=== PATIENT | female | born 1985 | race Caucasian/White ===

== ENCOUNTER 2021-01-18 13:14 | Emergency (ER) | payer OTHER, SELFPAY ==
[2021-01-18 13:20] VITALS: BP 127/80; PULSE 93; RESP 18; TEMP 36.6; O2SAT 100
--- NOTE | 2021-01-18 14:15 | ED.GENADULT ---
HPI - General Adult General Chief complaint: Unspecified Stated complaint: Patient is requesting ultrasound due to pregancy Time Seen by Provider: 01/18/21 13:30 Source: patient Mode of arrival: ambulatory Limitations: no limitations History of Present Illness HPI narrative: Patient is a 35 year old female who presents requesting ultrasound for . Patient reports being seen by Dr. Carlos Elias's office yesterday and had ultrasound which showed she was 6 weeks 2 days gestation per patient. Patient denies pelvic pain, discharge or cramping. She reports that she is not having any symptoms like nausea, smell aversion etc and wants ultrasound to check on baby at this time. Patient denies all physical complaints. MD complaint: Requesting ultrasound Related Data Home Medications Medication Instructions Recorded Confirmed levonorgestrel 20.1 mcg/24 hrs (6 1 device I-UTERINE ONCE 05/10/20 yrs) 52 mg intrauterine device Allergies Allergy/AdvReac Type Severity Reaction Status Date / Time No Known Allergies Allergy Unknown Verified 02/15/20 09:09 Review of Systems Review of Systems: Narrative: CONSTITUTIONAL: Denies fever, chills, or sweats. EYES: Denies visual changes, redness, or discharge. ENT: Denies rhinorrhea, congestion, sore throat, or otalgia. CARDIOVASCULAR: Denies chest pain, palpitations, or edema. RESPIRATORY: Denies cough or dyspnea. GASTROINTESTINAL: Denies abdominal pain, nausea, vomiting, or diarrhea. GENITOURINARY: Denies dysuria or hematuria. SKIN: Denies rash or itching. MUSCULOSKELETAL: Denies back pain, joint pain, or myalgia. NEUROLOGIC: Denies headache, numbness, dizziness, or weakness. PSYCHIATRIC: Denies anxiety or depression. PMFSH Family History Family History Mother Hypertension Family history of cardiovascular disease Family history of cardiomyopathy Sibling Family history of malignant melanoma Other Asthma Family history of allergic disorder Social History Social History Smoking status: Never smoker Alcohol intake: current Gender identity (if verbalized by the patient): Female Exam Narrative: Exam Narrative: GENERAL: Well-appearing, well-nourished, and in no acute distress. HEAD: Normocephalic, atraumatic. EYES: EOMI. No redness or drainage. Conjunctiva are normal. ENT: Mucous membranes pink and moist. CHEST: No respiratory distress. Clear to auscultation. HEART: Regular rate and rhythm. No murmur appreciated. Normal peripheral pulses. GI: Soft, nontender without rebound, or guarding. MUSCULOSKELETAL: No bony tenderness. EXTREMITIES: Normal range of motion. No edema. SKIN: Warm, dry, no rash. NEURO: No focal deficits. Alert and oriented x3. Gait steady. PSYCH: Normal affect. No signs of depression or anxiety. Course Vital Signs Vital signs: Vital Signs Temperature 36.6 C 01/18/21 13:20 Pulse Rate 93 01/18/21 13:20 Respiratory Rate 18 01/18/21 13:20 Blood Pressure 127/80 01/18/21 13:20 Pulse Oximetry 100 01/18/21 13:20 Temperature 36.6 C 01/18/21 13:20 Pulse Rate 93 01/18/21 13:20 Respiratory Rate 18 01/18/21 13:20 Blood Pressure 127/80 01/18/21 13:20 Pulse Oximetry 100 01/18/21 13:20 Reviewed-patient is informed that they may have pre-hypertension or hypertension based on a blood pressure reading. I recommend the patient call the primary care provider listed on their discharge instructions or a physician of their choice this week to arrange follow-up for further evaluation of possible pre-hypertension or hypertension. Medical Decision Making MDM Narrative Medical decision making narrative: heart tones in the 180's obtained by L & D RN. Discussed with Dr. Carlos Elias who requests no further interventions for patient. Patient instructed to follow up with Dr. Carlos Elias as scheduled. Patient is
[2021-01-18 14:36] VITALS: BP 138/78; PULSE 78; RESP 20; O2SAT 99
== END 2021-01-18 14:38 | disposition home or self-care (01) ==
PROVIDERS: Emergency Provider Nurse Practitioner; PCP Family Medicine
DX: Z34.91 Encounter for supervision of normal pregnancy, unspecified, first trimester (principal); R03.0 Elevated blood-pressure reading, without diagnosis of hypertension
CPT/HCPCS: 99282

== ENCOUNTER 2021-01-28 17:07 | Emergency (ER) | payer OTHER, SELFPAY ==
[2021-01-28 17:50] VITALS: BP 124/79; PULSE 84; RESP 18; TEMP 37.2; O2SAT 99
[2021-01-28 18:29] LABS: Basophils Percent Auto 0.2 % (0.2-1.2); Eosinophils Absolute Auto 0.2 K/mm3 (0-0.3); Eosinophils Percent Auto 1.7 % (0-4.4); Hemoglobin 12.1 g/dL (12.0-15.0); Immature Granulocyte Absolute 0.01 K/mm3 (0.00-0.031); Immature Granulocyte Percent A 0.1 % (0-0.5); Lymphocytes Absolute Auto 1.79 K/mm3 (0.9-3.2); Lymphocytes Percent Auto 19.7 % (18.3-44.2); Mean Corpuscular HGB Conc 34.6 g/dl (32-36); Mean Corpuscular Hemoglobin 30.6 pg (26-34); Mean Corpuscular Volume 88.6 fl (80-100); Mean Platelet Volume 8.7 fl (7.4-10.4); Monocytes Absolute Auto 0.6 K/mm3 (0.1-0.6); Monocytes Percent Auto 6.1 % (2.6-8.5); Neutrophils Absolute Auto 6.6 K/mm3 (1.3-6.7); Neutrophils Percent Auto 72.2 % (45.5-73.1); Platelet Count Result 341 k/mm3 (150-375); Red Blood Count 3.95 M/mm3 (4.2-5.4); Red Cell Distribution Width 12.7 % (11.5-14.5); White Blood Count 9.1 K/mm3 (4.5-10.0)
[2021-01-28 19:37] LABS: Beta HCG Quantitative > 300000.00 mIU/ML
[2021-01-28] MEDS: SODIUM CHLORIDE 0.9% IV 1,000 ML 999 ML IV CONT (21:47)
[2021-01-28 21:52] VITALS: BP 131/72; PULSE 103
[2021-01-28 21:53] VITALS: BP 124/77; PULSE 95
[2021-01-28 21:55] VITALS: BP 121/77; PULSE 98
--- NOTE | 2021-01-28 22:51 | ED.FEMALEGU ---
HPI - Female Genitourinary General Chief complaint: Vaginal Bleeding Stated complaint: VB PREG Time Seen by Provider: 01/28/21 21:25 History of Present Illness HPI Narrative: Patient is a 35-year-old female who presents ER with vaginal bleeding. Started suddenly just prior to arrival here. A large amount of blood come out of her vagina. She is [address] Carlos Elias. She denies any vaginal cramping. No persistent bleeding. Had some spotting previously and was diagnosed with threatened . She has had 2 ultrasounds have confirmed IUP. Related Data Home Medications Medication Instructions Recorded Confirmed levonorgestrel 20.1 mcg/24 hrs (6 1 device I-UTERINE ONCE 05/10/20 yrs) 52 mg intrauterine device Allergies Allergy/AdvReac Type Severity Reaction Status Date / Time No Known Allergies Allergy Unknown Verified 02/15/20 09:09 Review of Systems Review of Systems: All systems reviewed & are unremarkable except as noted in HPI and below Gastrointestinal: Gastrointestinal: Denies abdominal pain, Denies nausea and Denies vomiting Genitourinary: Genitourinary: Reports abnormal vaginal bleeding, Denies nocturia, Denies dysuria and Denies vaginal discharge PMFSH Past Medical History Medical History (Updated 01/28/21 @ 22:57 by Manuel Son MD) Generalized anxiety disorder Obsessive-compulsive disorder, unspecified Surgical History Surgical History (Updated 01/28/21 @ 22:53 by Manuel Son MD) No pertinent past surgical history Family History Family History Mother Hypertension Family history of cardiovascular disease Family history of cardiomyopathy Sibling Family history of malignant melanoma Other Asthma Family history of allergic disorder Social History Social History Smoking status: Never smoker Alcohol intake: current Gender identity (if verbalized by the patient): Female Exam Narrative: Exam Narrative: GENERAL: Well-appearing, well-nourished, and in no acute distress. HEAD: Normocephalic, atraumatic. CHEST: Clear to auscultation. No respiratory distress. HEART: Regular rate and rhythm. Normal peripheral pulses. ABDOMEN: Soft, nontender, nondistended. : Normal external genitalia. Small amount of dark blood within the vagina with mucus-like substance coming from the cervical os. No additional discharge. EXTREMITIES: Normal range of motion. No edema. NEURO: Alert and oriented x3. PSYCH: Normal mood and affect. Course Course Emergency Course: Unable to identify intrauterine on bedside ultrasound. Concern patient is actively miscarrying. Discussed with patient's obstetrics office. Did like her to come in tomorrow as previously scheduled for an ultrasound. Patient verbalized understanding of treatment plan. Discharge home. Vital Signs Vital signs: Vital Signs Temperature 98.9 F 01/28/21 17:50 Pulse Rate 84 01/28/21 17:50 Respiratory Rate 18 01/28/21 17:50 Blood Pressure 124/79 01/28/21 17:50 Pulse Oximetry 99 01/28/21 17:50 Temperature 98.9 F 01/28/21 17:50 Pulse Rate 98 01/28/21 21:55 Respiratory Rate 18 01/28/21 17:50 Blood Pressure 121/77 01/28/21 21:55 Pulse Oximetry 99 01/28/21 17:50 MDM - Female Genitourinary Lab Data Result diagrams: 01/28/21 17:57 Labs: Lab Results 01/28/21 01/28/21 01/28/21 Range/Units 17:57 17:57 17:57 WBC 9.1 (4.5-10.0) K/mm3 RBC 3.95 L (4.2-5.4) M/mm3 Hgb 12.1 (12.0-15.0) g/dL Hct 35.0 L (37.0-47.0) % MCV 88.6 (80-100) fl MCH 30.6 (26-34) pg MCHC 34.6 (32-36) g/dl RDW 12.7 (11.5-14.5) % Plt Count 341 (150-375) k/mm3 MPV 8.7 (7.4-10.4) fl Immature Gran % (Auto) 0.1 (0-0.5) % Neut % (Auto) 72.2 (45.5-73.1) % Lymph % (Auto) 19.7 (18.3-44.2) % [place] % (Auto) 6.1 (
[2021-01-28 23:19] VITALS: BP 115/74; PULSE 90; RESP 18; O2SAT 100
== END 2021-01-28 23:19 | disposition home or self-care (01) ==
PROVIDERS: Emergency Medicine; Emergency Provider Emergency Medicine; PCP Family Medicine
DX: O20.0 Threatened abortion (principal); Z3A.08 8 weeks gestation of pregnancy
CPT/HCPCS: 36415; 84702; 85025; 85461; 96360; 99284; J7030

== ENCOUNTER 2021-09-02 10:50 | Inpatient (IN) | payer OTHER, SELFPAY ==
[2021-09-02] VITALS (70 sets, daily range): BP systolic 104–156; BP diastolic 59–103; PULSE 61–110; RESP 16–18; TEMP 36.6–37.1; O2SAT 95–100
[2021-09-02 12:16] LABS: Basophils Percent Auto 0.1 % (0.2-1.2); Eosinophils Percent Auto 0.6 % (0-4.4); Hematocrit 35.1 % (37.0-47.0); Hemoglobin 11.8 g/dL (12.0-15.0); Immature Granulocyte Absolute 0.04 K/mm3 (0.00-0.031); Immature Granulocyte Percent A 0.6 % (0-0.5); Lymphocytes Absolute Auto 1.13 K/mm3 (0.9-3.2); Lymphocytes Percent Auto 15.9 % (18.3-44.2); Mean Corpuscular HGB Conc 33.6 g/dl (32-36); Mean Corpuscular Volume 89.3 fl (80-100); Mean Platelet Volume 9.1 fl (7.4-10.4); Monocytes Absolute Auto 0.4 K/mm3 (0.1-0.6); Monocytes Percent Auto 5.6 % (2.6-8.5); Neutrophils Absolute Auto 5.5 K/mm3 (1.3-6.7); Neutrophils Percent Auto 77.2 % (45.5-73.1); Platelet Count Result 217 k/mm3 (150-375); Red Blood Count 3.93 M/mm3 (4.2-5.4); Red Cell Distribution Width 13.7 % (11.5-14.5); White Blood Count 7.1 K/mm3 (4.5-10.0)
--- NOTE | 2021-09-02 12:48 | WPDANESEPPF ---
Anes - Initial Pre Proc Eval Date/Time: 09/02/21 12:48 Surgeon: Theron Butler MD Pre Op Diagnosis: r/o ROM Patient Data Age: 36 Gender: F Height: 1.63 m Weight: 79.5 kg Last Vital Signs Pulse 107 H 09/02/21 12:30 BP 126/86 09/02/21 12:30 Allergies Allergy/AdvReac Type Severity Reaction Status Date / Time No Known Allergies Allergy Unknown Verified 07/01/21 15:27 Home Medications Medication Instructions Recorded Confirmed Type No Home Medications 07/01/21 07/01/21 History Laboratory Tests 09/02/21 09/02/21 12:08 12:08 WBC 7.1 K/mm3 K/mm3 (4.5-10.0) RBC 3.93 M/mm3 L M/mm3 (4.2-5.4) Hgb 11.8 g/dL L g/dL (12.0-15.0) Hct 35.1 % L % (37.0-47.0) MCV 89.3 fl fl (80-100) MCH 30.0 pg pg (26-34) MCHC 33.6 g/dl g/dl (32-36) RDW 13.7 % % (11.5-14.5) Plt Count 217 k/mm3 k/mm3 (150-375) MPV 9.1 fl fl (7.4-10.4) Immature Gran % (Auto) 0.6 % H % (0-0.5) Neut % (Auto) 77.2 % H % (45.5-73.1) Lymph % (Auto) 15.9 % L % (18.3-44.2) [place] % (Auto) 5.6 % % (2.6-8.5) Eos % (Auto) 0.6 % % (0-4.4) Baso % (Auto) 0.1 % L % (0.2-1.2) Lymph # (Auto) 1.13 K/mm3 K/mm3 (0.9-3.2) [place] # (Auto) 0.4 K/mm3 K/mm3 (0.1-0.6) Eos # (Auto) 0.0 K/mm3 K/mm3 (0-0.3) Baso # (Auto) 0.0 K/mm3 K/mm3 (0.0-0.1) Abs Immat Gran (auto) 0.04 K/mm3 H K/mm3 (0.00-0.031) Absolute Neuts (auto) 5.5 K/mm3 K/mm3 (1.3-6.7) Absolute Nucleated RBC 0.0 K/mm3 K/mm3 (0.0-0.012) Nucleated RBC % 0.0 % % (0.0-0.2) RPR Pending Patient hx anesthesia problems: none Family hx anesthesia problems: none Results Review: All pre-operative results and documents have been reviewed as part of the pre-operative evaluation. [facility] Past Medical History Medical History Generalized anxiety disorder Obsessive-compulsive disorder, unspecified Surgical History Surgical History No pertinent past surgical history Family History Family History Mother Hypertension Family history of cardiovascular disease Family history of cardiomyopathy Sibling Family history of malignant melanoma Other Asthma Family history of allergic disorder Social History Social History Alcohol intake: current Gender identity (if verbalized by the patient): Female Anes - Eval Final PreProcedure Day of Procedure 09/02/21 12:48 Patient weight: overweight Heart: regular rate and rhythm Lungs: clear to auscultation Airway: Mallampati scale class II Neurological: alert and oriented Last oral intake: >/= 8 hours ASA classification: II Emergent: yes Anesthetic plan: proceed Anesthesia type and monitoring: regional spinal and standard monitoring Results Review: All pre-operative results and documents have been reviewed as part of the pre-operative evaluation. Informed Consent: The patient's anesthetic plan and its attendant risks and benefits were discussed with the patient/family/POA. Questions were solicited and answers provided to the satisfaction of the patient/family/POA.
--- NOTE | 2021-09-02 13:01 | PM.IMHP ---
H&P: HPI History of Present Illness Date/Time: 09/02/21 13:01 Chief Complaint: intrauterine at term SROM prior x2 Narrative: 36 yo at 39w0d who presents with SROM. pt states she had a large gush of fluid earlier today. Her has been uncomplicated thus far. Pt has history of 2 prior c-sections. Review of Systems Cardiovascular: Cardiovascular: Denies chest pain, Denies leg edema, Denies palpitations, Denies dyspnea and Denies dyspnea on exertion Respiratory: Respiratory: Denies cough, Denies dyspnea and Denies dyspnea on exertion Gastrointestinal: Gastrointestinal: Denies abdominal pain, Denies constipation, Denies diarrhea, Denies nausea and Denies vomiting Genitourinary: Genitourinary: Denies hematuria, Denies urinary frequency, Denies dysuria, Denies pelvic pain, Denies urinary incontinence and Denies vaginal discharge Neurologic: Reports system reviewed and no additional complaints, except as documented Psychiatric: Psychiatric: Reports no additional psychiatric complaints Endocrine: Endocrine: Denies palpitations PMFSH Past Medical History Medical History Generalized anxiety disorder Obsessive-compulsive disorder, unspecified Surgical History Surgical History No pertinent past surgical history Family History Family History Mother Hypertension Family history of cardiovascular disease Family history of cardiomyopathy Sibling Family history of malignant melanoma Other Asthma Family history of allergic disorder Social History Social History Alcohol intake: current Gender identity (if verbalized by the patient): Female Meds Home Medications and Allergies Home Medications Medication Instructions Recorded Confirmed Type No Home Medications 07/01/21 07/01/21 History Allergies Allergy/AdvReac Type Severity Reaction Status Date / Time No Known Allergies Allergy Unknown Verified 07/01/21 15:27 Vital Signs Vital Signs - 24 hr 09/02/21 11:13 09/02/21 11:15 09/02/21 11:30 Pulse Rate 94 100 103 H Blood Pressure 135/89 118/77 122/83 09/02/21 11:45 09/02/21 12:00 09/02/21 12:15 Pulse Rate 104 H 110 H 93 Blood Pressure 128/83 123/84 127/80 09/02/21 12:30 Pulse Rate 107 H Blood Pressure 126/86 Exam Const: General: no acute distress Eyes: EOM: EOMs intact bilaterally Neck: Neck: supple Thyroid: thyroid normal Chest: Breast/axilla inspection: normal inspection of the breasts Breast/axilla palpation: normal palpation of the breasts, normal palpation of the axillae and no axillary lymphadenopathy Resp: Effort & Inspection: normal respiratory effort Auscultation: clear to auscultation bilaterally Cardio: Rate: regular rate Rhythm: regular rhythm GI: Inspection: non-distended and other (Gravid) GI Palp: Yes Soft to palpation, No Tenderness to palpation present (GI) and No Guarding due to palpation present (GI) Auscultation: normal bowel sounds : Speculum Exam - Vagina: No vaginal bleeding OB/external & speculum: external exam normal; No vaginal bleeding Skin: General skin exam: normal color and no rashes or lesions noted Neuro: Cognition (Neuro): normal cognition Speech: normal speech Extrem: General: normal to inspection Psych: Mental Status: mental status grossly normal Affect: normal affect H&P: Results Labs Labs: Short CBC 09/02/21 Range/Units 12:08 WBC 7.1 (4.5-10.0) K/mm3 Hgb 11.8 L (12.0-15.0) g/dL Hct 35.1 L (37.0-47.0) % Plt Count 217 (150-375) k/mm3 Assessment and Plan Assessment and plan (1) Supervision of high risk , unspecified, third trimester: Code(s): O09.93 - Supervision of high risk , unspecified, third trimester
[2021-09-02] MEDS: LACTATED RINGERS 250 ML 999 ML IVPB (13:15)
[2021-09-02] MEDS: ceFAZolin 2 GM/D5W 50 ML 2 GM/50 ML BAG IVPB (13:41)
[2021-09-02] MEDS: KETOROLAC 30 MG/ML VIAL (*BKC) IV PUSH ×2 (14:04→22:07)
[2021-09-02] MEDS: LACTATED RINGERS 1,000 ML 125 ML IV CONT (14:45)
--- NOTE | 2021-09-02 15:03 | LDADM ---
This patient, Emma Higuera, was admitted to Labor/Delivery/Recovery 120 on 09/02/21 at 10:50. Plans for labor, pain management and were discussed with patient. Patient/family oriented to hospital policies and general routines including ID bracelet, bed and alarms, visiting hours, pain management, procedures, bathroom and other care routines, personal items, smoking policy, room service/diet and guest tray routines, infant security routines, and visiting hours. Patient/Family are encouraged to report perceived risks to care and to ask questions if they do not understand what they are told or what they should do. See OBIX for further documentation.
--- NOTE | 2021-09-02 15:19 | W.PM.PROC2 ---
Procedure Note - Detailed Date of Procedure 09/02/21 Pre-op Diagnosis r/o ROM Post-op Diagnosis same Procedure Performed repeat low transverse section Surgeon Audie Jimenez MD Anesthesia spinal and epidural Description of Procedure The patient was taken to the operating room. A combined spinal epidural anesthesic was administered and found to be adequate at a t-10 level. The patient was placed in a supine position with a slight left lateral tilt. A armijo catheter was placed with return of clear urine. A Bovie grounding pad was placed. Surgical prep was performed and surgical drapes were placed. A surgical time out was performed. A Pfannenstiel skin incision was then made with the scalpel and carried through to the underlying layer of fascia. The fascia was then incised in the midline and the incision was extended laterally with the Huizar scissors. The superior aspect of the fascia was then grasped with the Terrie clamps, elevated, and the underlying rectus muscles dissected off bluntly and sharply. Attention was then turned to the inferior aspect of this incision which, in a similar fashion, was grasped, tented up with the Terrie clamps, and the rectus muscles dissected off both bluntly and sharply. The rectus muscles were then in the midline. The peritoneum was identified and entered bluntly. The peritoneal incision was then extended superiorly and inferiorly with good visualization of the bladder. The vesico-uterine serosa was identified and dissected to create a bladder flap. The bladder blade was reinserted. The uterus was inspected for rotation. A low-transverse uterine incision was made sharply with the scalpel and entry was made into the uterine cavity. An amniotomy was made and copious amounts of clear fluid were noted on return. The uterine incision was extended laterally bluntly. The bladder blade was removed. The fetus was difficult to extract from the hysterotomy due to adhesions of the rectus muscle and the fascia. A kiwi vacuum was applied and was unsuccessful with one pop-off. Bandage scissor were then used to incise the right lateral rectus muscle and to extend the uterine incision. The fetus was then delivered atraumatically.. The nose and mouth were suctioned with a bulb syringe. The umbilical cord was clamped twice and cut. The was handed off to the waiting staff. At the time of the delivery, the had good color, tone and grimace. The cried with minimal stimulation. A second segment of umbilical cord was clamped and cut for cord blood gasses. Cord blood was collected for determination of the blood type and for direct Baires. The placenta was delivered spontaneously without difficulty. The placenta appeared grossly normal and complete. The uterus was exteriorized and cleared of all clots and debris. The uterine incision was repaired using 0-monocryl suture in a running fashion. A second layer of 0 Monocryl suture was used in an imbricating fashion to obtain excellent hemostasis and uterine strength. The uterine closure was inspected for hemostasis. The posterior aspect of the uterus and the broad ligaments were inspected and the posterior cul-de-sac cleared of fluid and blood clots. The uterine closure was again inspected and found to be hemostatic. The uterus was returned to the abdominal cavity. The pericolic gutters were inspected and were cleared of all blood clots and debris. The uterine closure was then re inspected to ensure hemostasis as were all subfascial tissues. The peritoneum was closed using 3-0 vicryl in a running fashion. The right rectus muscle was re-approximated with a single 0-vicryl mattress suture. The fascia was reapproximated with 0-vicryl in a running fashion. The subcutaneous tissue was irrigated and hemostasis achieved with electrocautery. It was reapproximated with 3-0 vicryl in a running fashion. The skin was closed with 4-0 vicryl in a subcuticular fashion. A sterile dres
[2021-09-02] MEDS: OXYTOCIN 30 UNITS/NS 500 ML 30 UNITS/500 ML BAG 125 UNITS IV CONT (17:31)
--- NOTE | 2021-09-02 17:41 | PC.NURSE ---
Patient transferred to post room #290 via stretcher. Support person present. Oriented to unit, room, information board, rooming in, admission packet and security measures. Patient verbalizes understanding.
[2021-09-02] MEDS: DOCUSATE SODIUM 100 MG CAPSULE PO (20:09)
[2021-09-02] MEDS: DEXTROSE 5%/0.45% SOD CHL 1,000 ML 125 ML IV CONT (23:15)
[2021-09-03 03:10] VITALS: BP 112/75; PULSE 74; RESP 16; TEMP 36.8; O2SAT 98
[2021-09-03 05:22] LABS: Basophils Percent Auto 0.4 % (0.2-1.2); Eosinophils Percent Auto 0.6 % (0-4.4); Hematocrit 29.1 % (37.0-47.0); Hemoglobin 9.5 g/dL (12.0-15.0); Immature Granulocyte Absolute 0.03 K/mm3 (0.00-0.031); Immature Granulocyte Percent A 0.4 % (0-0.5); Lymphocytes Absolute Auto 1.11 K/mm3 (0.9-3.2); Lymphocytes Percent Auto 15.9 % (18.3-44.2); Mean Corpuscular HGB Conc 32.6 g/dl (32-36); Mean Corpuscular Volume 91.8 fl (80-100); Mean Platelet Volume 9.8 fl (7.4-10.4); Monocytes Absolute Auto 0.5 K/mm3 (0.1-0.6); Monocytes Percent Auto 7.6 % (2.6-8.5); Neutrophils Absolute Auto 5.2 K/mm3 (1.3-6.7); Neutrophils Percent Auto 75.1 % (45.5-73.1); Platelet Count Result 175 k/mm3 (150-375); Red Blood Count 3.17 M/mm3 (4.2-5.4); Red Cell Distribution Width 13.8 % (11.5-14.5)
[2021-09-03 07:30] VITALS: BP 115/79; PULSE 85; RESP 16; TEMP 36.6; O2SAT 99
[2021-09-03] MEDS: DOCUSATE SODIUM 100 MG CAPSULE PO ×2 (07:55→16:49)
[2021-09-03] MEDS: POLYSACCHARIDE IRON COMPLEX 150 MG CAPSULE PO ×2 (07:55→16:49)
[2021-09-03] MEDS: MULTIVIT/MIN/PREN/FOL AC/IRON TABLET 1 TAB PO (07:55)
[2021-09-03] MEDS: IBUPROFEN 600 MG TABLET PO ×2 (07:55→16:49)
--- NOTE | 2021-09-03 09:33 | WPDANLDPN2 ---
Anes-Prog Note L&D Date/Time: 09/03/21 09:33 Comfortable throughout: section Neuraxial method: spinal Epidural/Spinal procedure site: clean & non-tender Neuro status: Neuro function grossly intact. Cardiovascular status: normal Respiratory status: normal Airway patency: baseline Mental status: baseline Post-Op hydration status: normal Vital Signs: Last Vital Signs Temp 36.6 C 09/03/21 07:30 Pulse 85 09/03/21 07:30 Resp 16 09/03/21 07:30 BP 115/79 09/03/21 07:30 Pulse Ox 99 09/03/21 07:30 Pain score (VAS): 09/09 I/O: Intake & Output 09/02/21 09/03/21 09/03/21 23:59 07:59 15:59 Intake Total 500 Output Total 300 1350 Balance 200 -1350 Post-procedural complaints: none Patient feedback: Patient satisfied with anesthetic care.
--- NOTE | 2021-09-03 09:34 | WPDANLDNPN2 ---
Anes-Prog Note L&D-Neuraxial Date/Time: 09/03/21 09:34 Neuraxial medications: intrathecal PF morphine Opiod-related complaints: none Patient feedback: Patient satisfied with post-operative pain management.
--- NOTE | 2021-09-03 11:22 | PM.OBPNVD ---
OB - PN: Subj Subjective Date/time seen: 09/03/21 11:22 Interval history: Patient doing well this AM. she is ambulating out of bed. She is tolerating PO. She reports adequate pain control. Her bleeding is normal and she reports normal lochia. She denies fever, chills, N/V. She has not yet passed flatus. Patient comments: no complaints and pain well controlled; no flatus present OB - PN: Obj Data Labs CBC & Chem 7: 09/03/21 03:17 Labs: Laboratory Results - last 24 hr 09/02/21 09/02/21 09/03/21 12:08 12:08 03:17 WBC 7.1 7.0 RBC 3.93 L 3.17 L Hgb 11.8 L 9.5 L Hct 35.1 L 29.1 L MCV 89.3 91.8 MCH 30.0 30.0 MCHC 33.6 32.6 RDW 13.7 13.8 Plt Count 217 175 MPV 9.1 9.8 Immature Gran % (Auto) 0.6 H 0.4 Neut % (Auto) 77.2 H 75.1 H Lymph % (Auto) 15.9 L 15.9 L [place] % (Auto) 5.6 7.6 Eos % (Auto) 0.6 0.6 Baso % (Auto) 0.1 L 0.4 Lymph # (Auto) 1.13 1.11 [place] # (Auto) 0.4 0.5 Eos # (Auto) 0.0 0.0 Baso # (Auto) 0.0 0.0 Abs Immat Gran (auto) 0.04 H 0.03 Absolute Neuts (auto) 5.5 5.2 Absolute Nucleated RBC 0.0 0.0 Nucleated RBC % 0.0 0.0 Blood Type O Positive Antibody Screen Negative OB - PN A/P Plan day: 1 Plan: routine care Comments: patient doing well this AM s/p armijo tolerating PO H/H , continue iron supplementation continue routine PP care Time Spent With Patient Time: Total time spent is greater than 50% in coordination of care (as documented) at patient's floor/unit and/or counseling patient: Time with patient: less than 15 minutes Review of Systems Constitutional: Constitutional: Reports no additional constitutional complaints Cardiovascular: Cardiovascular: Reports no additional cardiovascular complaints Respiratory: Respiratory: Reports no additional respiratory complaints Gastrointestinal: Gastrointestinal: Reports no additional gastrointestinal complaints Genitourinary: Genitourinary: Reports no additional female genitourinary complaints Exam Const: General: comfortable and no acute distress Resp: Effort & Inspection: normal respiratory effort Auscultation: clear to auscultation bilaterally Cardio: Rate: regular rate GI: GI Palp: Yes Soft to palpation and Yes Tenderness to palpation present (GI) (appropriately tender around incision ) Auscultation: normal bowel sounds Other: fundus firm and below umbilicus Incision C/D/I Urinary Catheter: Urinary Catheter: urine clear Psych: Appearance: grossly normal Mental Status: mental status grossly normal Affect: normal affect
[2021-09-03 11:38] VITALS: BP 116/80; PULSE 85; RESP 16; TEMP 36.3; O2SAT 99
[2021-09-03 14:57] LABS: Rapid Plasma Reagin Non-Reactive (NonReactive)
[2021-09-03 21:00] VITALS: BP 122/81; PULSE 93; RESP 16; TEMP 37; O2SAT 99
[2021-09-03] MEDS: FLUoxetine HCL 20 MG CAPSULE PO (21:04)
[2021-09-04] MEDS: IBUPROFEN 600 MG TABLET PO ×4 (04:04→23:46)
--- NOTE | 2021-09-04 06:59 | PM.OBPNVD ---
OB - PN: Subj Subjective Date/time seen: 09/04/21 06:59 Patient comments: no complaints and pain well controlled baby status: doing well and nursing well OB - PN: Obj Data Labs CBC & Chem 7: 09/03/21 03:17 Labs: Laboratory Results - last 24 hr 09/02/21 12:08 RPR Non-reactive OB - PN A/P Plan day: 2 Plan: routine care Time Spent With Patient Time: Total time spent is greater than 50% in coordination of care (as documented) at patient's floor/unit and/or counseling patient: Time with patient: less than 15 minutes Review of Systems Review of Systems: All systems reviewed & are unremarkable except as noted in HPI and below Exam Const: General: no acute distress Eyes: General: appearance normal, both eyes and all related structures Neck: Neck: supple and no JVD Thyroid: thyroid normal Resp: Effort & Inspection: normal respiratory effort Auscultation: clear to auscultation bilaterally Cardio: Rate: regular rate Rhythm: regular rhythm GI: Inspection: non-distended GI Palp: Yes Soft to palpation, No Tenderness to palpation present (GI) and No Guarding due to palpation present (GI) Auscultation: normal bowel sounds : General: Yes bladder normal to palpation External Female Exam: normal external appearance Speculum Exam - Vagina: normal vaginal discharge and No vaginal bleeding Speculum Exam - Cervix: nontender Bimanual exam- vagina & uterus: bladder normal to palpation and No Cervical tenderness present OB/external & speculum: No vaginal bleeding Skin: General skin exam: no rashes or lesions noted Extrem: General: normal to inspection and no edema Psych: Mental Status: mental status grossly normal Affect: normal affect
[2021-09-04 08:30] VITALS: BP 129/82; PULSE 86; RESP 16; TEMP 36.8; O2SAT 99
[2021-09-04 09:30] VITALS: BP 118/80; PULSE 78; RESP 18; TEMP 36.7
[2021-09-04] MEDS: MULTIVIT/MIN/PREN/FOL AC/IRON TABLET 1 TAB PO (10:11)
[2021-09-04] MEDS: POLYSACCHARIDE IRON COMPLEX 150 MG CAPSULE PO ×2 (10:12→17:20)
[2021-09-04] MEDS: DOCUSATE SODIUM 100 MG CAPSULE PO ×2 (10:12→17:19)
--- NOTE | 2021-09-04 12:55 | PC.NURSE ---
1000 - RN entered the room and observed infant with shallow latch and not in an adequate football position. Discussed mom's /pump and feed plan for home care. Risks and benefits discussed with regards to mom's feeding choices so she can make an informed decision. Consulted with patient, reviewed infant feeding cues, frequencies, duration of feedings, feeding elimination flow sheet, and signs of adequate intake. Reviewed positioning/alignment, holding breast and asymmetrical latch on. Mom has bilateral cracked and sore nipples. She complains of pain with latch. was unable to latch correctly related to sleepiness. Mom is encouraged to place infant skin to skin and watch for early feeding signs of REM, then call RN for assistance. 1115 - Pt's called RN to the room for assistance with feeding. Mom had latched infant to the left breast in cross cradle position. Mom demonstrated understanding with unlatching infant. RN encouraged nipple to nose and observing for gaping mouth before latch. nursed eagerly, with steady draws and occasional swallowing noted. Reviewed signs of a correct latch, effective nursing and suck swallow ratio. was able to maintain latch without discomfort to mother with cross cradle positioning. Nipple care reviewed. 1140 - Infant skin to skin vertically between breast to prepare to offer the other breast. Baby is fussy and multiple attempts made to effectively latch infant. Mom is sore and frustrated with poor latching and the pain associated with it. 1155 latched effectively onto right breast in cross cradle position. Mom denies pain with nursing and demonstrates understanding of keeping baby stimulated to nurse at the breast instead of sleeping. Instructed mother to call out for RN assistance if she is unable to latch infant for feeding or she has discomfort with nursing. Mom plans to call RN for the next feeding to assist with effective latching. Instructed feeding should be initiated if feeding cues are observed and aim to breastfeed 10-12 times in a 24 hour day. Mother voiced understanding of information shared.
--- NOTE | 2021-09-04 14:24 | PC.NURSE ---
8105 - Consulted with patient, reviewed positioning/alignment, holding breast and asymmetrical latch. Support given to mom with placing infant to breast effectively in the football position. was able to latch correctly and maintain without discomfort to mother. nursed eagerly, with steady draws and appropriate suck/ swallowing ratios heard. Mom verbalized hearing infant swallow. Reviewed signs of a correct latch, effective nursing and suck swallow ratio. Nipple care reviewed. Instructed mother to call out for RN assistance if she is unable to latch for feeding or she has discomfort with nursing. Instructed feeding be initiated 8 -12 times in a 24 hour day (approximately every 2-3 hours) when feeding cues as described in the fourth edition Pocket Guide for Management section 3. RN referred to the mom and baby care guide as a resource. Mother voiced understanding of information shared.
[2021-09-04] MEDS: FLUoxetine HCL 20 MG CAPSULE PO (18:59)
[2021-09-04 19:00] VITALS: BP 120/75; PULSE 81; RESP 20; TEMP 36.4
[2021-09-05] MEDS: IBUPROFEN 600 MG TABLET PO ×2 (05:50→12:40)
--- NOTE | 2021-09-05 07:42 | PM.DS ---
DS: Admitting Diagnosis Discharge Date 09/05/2021 Admitting Diagnosis Term in active labor with previous section DS: Summary Hospital Course Hospital Course: Patient was admitted in active labor. She was scheduled for repeat section. She underwent unremarkable section please see the operative report for full details her hospital course unremarkable. She remained afebrile. She was up, voiding without difficulty, ambulating, generally without complaints. Time Spent with Patient Time attestation: Total time spent providing and/or coordinating discharge services: Exam Const: General: no acute distress Eyes: General: appearance normal, both eyes and all related structures Neck: Neck: supple and no JVD Thyroid: thyroid normal Resp: Effort & Inspection: normal respiratory effort Auscultation: clear to auscultation bilaterally Cardio: Rate: regular rate Rhythm: regular rhythm GI: Inspection: non-distended GI Palp: Yes Soft to palpation, No Tenderness to palpation present (GI) and No Guarding due to palpation present (GI) Auscultation: normal bowel sounds : General: Yes bladder normal to palpation External Female Exam: normal external appearance Speculum Exam - Vagina: normal vaginal discharge and No vaginal bleeding Speculum Exam - Cervix: nontender Bimanual exam- vagina & uterus: bladder normal to palpation and No Cervical tenderness present OB/external & speculum: No vaginal bleeding Skin: General skin exam: no rashes or lesions noted Extrem: General: normal to inspection and no edema Psych: Mental Status: mental status grossly normal Affect: normal affect Discharge Plan Discharge Attending physician on discharge: Theron Butler Discharging Clinician: Theron Butler Patient Disposition: Home, Self-Care Activity: may shower, no straining and pelvic rest Diet: heart healthy Wound Care Instructions: follow printed instructions Patient Instructions: Antibiotic Form Stand Alone Forms: General Discharge Information Follow-up/Referrals: Theron Butler MD [Physician] - Discharge Medications: New hydrocodone-acetaminophen 5-325 mg tablet 1 tablet PO Q4H PRN (Reason: pain) Qty: 30 RF: 0 No Action No Home Medications RF: 0 Date of admission: 09/02/21 10:50 Primary Care Provider: Charles Carr Admitting Provider: Theron Butler Attending physician on admission: Theron Butler Condition: Stable
--- NOTE | 2021-09-05 07:46 | PM.OBPNVD ---
OB - PN: Subj Subjective Date/time seen: 09/05/21 07:46 Interval history: Patient doing well this AM. she is ambulating out of bed. She is tolerating PO. She reports adequate pain control. Her bleeding is normal and she reports normal lochia. She denies fever, chills, N/V. She has not yet passed flatus. OB - PN: Obj Data Labs CBC & Chem 7: 09/03/21 03:17 OB - PN A/P Time Spent With Patient Time: Total time spent is greater than 50% in coordination of care (as documented) at patient's floor/unit and/or counseling patient:
[2021-09-05 08:00] VITALS: BP 125/18; PULSE 65; RESP 18; TEMP 36.3
[2021-09-05] MEDS: POLYSACCHARIDE IRON COMPLEX 150 MG CAPSULE PO (09:08)
[2021-09-05] MEDS: DOCUSATE SODIUM 100 MG CAPSULE PO (09:08)
[2021-09-05] MEDS: MULTIVIT/MIN/PREN/FOL AC/IRON TABLET 1 TAB PO (09:08)
--- NOTE | 2021-09-05 10:00 | PC.NURSE ---
Patient was given the opportunity to view the discharge video Mother & Baby Care, The First Two Weeks and to ask questions. Patient declined viewing the video and has been given the mother/baby guide for home reference.
--- NOTE | 2021-09-05 13:05 | PC.NURSE ---
Self care and infant care discharge instructions given including follow up visit date and time. Pt. verbalized understanding. No questions or concerns voiced. Very pleasant and cooperative. FOB at side.
--- NOTE | 2021-09-05 14:07 | PC.NURSE ---
0718 - Mother verbalizes she is able to independently latch with appropriate positioning/alignment. She denies any nipple discomfort with most latches, is feeding as required and waking infant to feed if needed. has had eight effective feedings in the past 24 hours, and is currently meeting outcomes for weight, output, jaundice and feeding frequencies. Reviewed improving positioning/alignment/latch for continued healing and effective . Mother states she feels confident to continue effective at home. Reviewed transition to breast milk, signs of adequate intake, and engorgement/relief. Instructed to call ICP if intake/output less than required. Reviewed regular medications mother is taking. Information provided per Junie. Reviewed community resources on the [employer] website and in the Mom/Baby guide. Information on outpatient services provided. Mother has no further questions at this time. RN reported to both OB and [employer] with regards to bilateral cracked healing nipples from earlier feeding, baby meeting outcomes and mom verbalized understanding the difference between an effective/ineffective latch.
[2021-09-06 11:32] VITALS: BP 133/77; PULSE 78; RESP 16; TEMP 37; O2SAT 99
== END 2021-09-05 14:55 | disposition home or self-care (01) | DRG 788 ==
LOC: ANHOBOP 10:56 → ANHOBPP 11:02 → ANHOBOP 12:12 → ANHOBPP 12:12 → ANHLDR 13:40 → ANHOB2 17:56
PROVIDERS: Admitting Provider Student in an Organized Health Care Education/Training Program; PCP Family Medicine; Visit Provider Obstetrics & Gynecology
PROC: 10D00Z1 Extraction of Products of Conception, Low, Open Approach (ICD-10-PCS; CPT 59514; principal; 2021-09-02 13:30)
DX: O34.219 Maternal care for unspecified type scar from previous cesarean delivery (principal); N73.6 Female pelvic peritoneal adhesions (postinfective); Z3A.38 38 weeks gestation of pregnancy; Z37.0 Single live birth; O99.344 Other mental disorders complicating childbirth; F41.9 Anxiety disorder, unspecified
CPT/HCPCS: 36415; 84112; 85025; 86592; 86850; 86900; 86901; A9270; J0131; J0690; J1885; J2274; J2370; J2405; J2590; J7120

== ENCOUNTER 2022-10-03 14:16 | Outpatient (CLI) | payer BC, SELFPAY ==
[2022-10-03 19:23] LABS: Basophils Percent Auto 0.4 % (0.2-1.2); Eosinophils Absolute Auto 0.3 K/mm3 (0-0.3); Eosinophils Percent Auto 3.6 % (0-4.4); Hematocrit 37.2 % (37.0-47.0); Hemoglobin 12.2 g/dL (12.0-15.0); Immature Granulocyte Absolute 0.01 K/mm3 (0.00-0.031); Immature Granulocyte Percent A 0.1 % (0-0.5); Lymphocytes Absolute Auto 1.76 K/mm3 (0.9-3.2); Lymphocytes Percent Auto 24.7 % (18.3-44.2); Mean Corpuscular HGB Conc 32.8 g/dl (32-36); Mean Corpuscular Hemoglobin 30.8 pg (26-34); Mean Corpuscular Volume 93.9 fl (80-100); Monocytes Absolute Auto 0.5 K/mm3 (0.1-0.6); Monocytes Percent Auto 6.3 % (2.6-8.5); Neutrophils Absolute Auto 4.6 K/mm3 (1.3-6.7); Neutrophils Percent Auto 64.9 % (45.5-73.1); Platelet Count Result 323 k/mm3 (150-375); Red Blood Count 3.96 M/mm3 (4.2-5.4); Red Cell Distribution Width 12.6 % (11.5-14.5); White Blood Count 7.1 K/mm3 (4.5-10.0)
[2022-10-03 19:56] LABS: Alanine Aminotransferase 20 U/L (6-35); Albumin Level 4.5 g/dL (3.5-5.1); Alkaline Phosphatase 67 U/L (38-126); Anion Gap 4 mmol/L (8-16); Aspartate Amino Transferase 28 U/L (14-36); Bilirubin,Total 0.4 mg/dL (0.2-1.3); Blood Urea Nitrogen 17 mg/dL (7-17); Calcium 9.1 mg/dL (8.4-10.2); Carbon Dioxide 32 mmol/L (22-30); Chloride 99 mmol/L (98-107); Estimated Glomerular Filt Rate > 60; Glucose 86 mg/dL (65-110); Potassium 3.7 mmol/L (3.4-5.0); Sodium 135 mmol/L (137-145)
[2022-10-03 20:11] LABS: Thyroid Stimulating Hormone 0.966 uIU/mL (0.465-4.680)
== END 2022-10-03 14:17 | disposition home or self-care (01) ==
LOC: ANHGOSHLAB 14:18
PROVIDERS: PCP Family Medicine; Visit Provider Family Medicine
DX: R55 Syncope and collapse (principal)
CPT/HCPCS: 36415; 80053; 84443; 85025

== ENCOUNTER 2025-03-01 12:12 | Outpatient (CLI) | payer BC, SELFPAY ==
--- NOTE | ~2025-03-01 | US_ITS ---
EXAMINATION: US venous doppler [facility] DATE: 03/01/2025 12:26 INDICATION: Left thigh pain TECHNIQUE: Grayscale ultrasound images without and with compression and Doppler ultrasound images of the left lower extremity veins were obtained. COMPARISON: 04/30/2017 FINDINGS: The visualized portions of left common femoral vein, profunda (deep) femoral vein, femoral vein, popl iteal vein, peroneal veins, posterior tibial veins, and greater saphenous vein outflow are patent. IMPRESSION: 1. No deep venous thrombosis. Reviewed, dictated and finalized at location A.
== END 2025-03-01 12:13 | disposition home or self-care (01) ==
PROVIDERS: PCP Family Medicine; Visit Provider Student in an Organized Health Care Education/Training Program
DX: M79.652 Pain in left thigh (principal)
CPT/HCPCS: 93971

== ENCOUNTER 2025-05-25 12:36 | Outpatient (CLI) | payer BC, SELFPAY ==
--- NOTE | 2025-06-08 12:33 | WPDHOLTEREM ---
Holter/Event Monitor Holter/Event Monitor Date of procedure: 05/25/25 Holter/Event Procedure: 3-7 Day Holter Monitor Indications: Palpitations Conclusion: 1. 7 days holter monitor on 05/25/25. 2. Underlying rhythm is sinus rhythm. HR range 57-152 bpm; average HR 87 bpm. HR at 152 bpm was on 05/29/25 at 4:15 pm. 3. There are rare premature supraventricular complexes. No supraventricular tachycardia. 4. There are rare premature ventricular complexes. No ventricular tachycardia. 5. No significant pauses greater than 3 seconds. 6. Patient reports 1 episode of symptoms of fluttering, panic attack which demonstrates sinus tachycardia at 105 bpm.
== END 2025-05-25 12:37 | disposition home or self-care (01) ==
LOC: ANHCARD 12:36
PROVIDERS: PCP Family Medicine; Visit Provider Student in an Organized Health Care Education/Training Program
DX: I49.1 Atrial premature depolarization (principal); I49.3 Ventricular premature depolarization; R00.2 Palpitations
CPT/HCPCS: 93242